=== PATIENT | female | born 1950 | race Asian ===

== ENCOUNTER → 2017-01-21 | Outpatient (CLI) | payer BC ==
[~2017-01-21] MED LIST: CA; MVI; PRILOSEC 20MG20 MG PO; SYNTHROID0.088 MG PO; SYNTHROID0.1 MG/TAB PO; ZITHROMAX500 M2 PO
== END ==
LOC: MC.RAD 10:59
DX: Z12.31 Encounter for screening mammogram for malignant neoplasm of breast (principal)

== ENCOUNTER → 2017-02-28 | Outpatient (CLI) | payer BC ==
[2017-02-28 14:45] LABS: ADD PATHOLOGY DIFF REVIEW NO
[2017-02-28 15:03] LABS: ALANINE AMINOTRANSFERASE 33 U/L (9-52); ALBUMIN 4.6 gm/dL (3.5-5.0); ALKALINE PHOSPHATASE 54 U/L (50-136); ANION GAP 14 mmol/L (7-16); BILIRUBIN,TOTAL 0.8 mg/dL (0.0-1.0); BLOOD UREA NITROGEN 10 mg/dL (7-17); CALCIUM 9.5 mg/dL (8.4-10.2); CARBON DIOXIDE 24 mmol/L (22-30); CHLORIDE 103 mmol/L (98-107); GLUCOSE 85 mg/dL (74-106); SODIUM 141 mmol/L (137-145); TOTAL PROTEIN 7.8 gm/dL (6.4-8.2)
[2017-02-28 15:16] LABS: HEMATOCRIT 39.1 % (37.0-47.0); HEMOGLOBIN 13.5 g/dl (12.5-16.0); MEAN CELL VOLUME 89 fl (80.0-100.0); MEAN CORPUSCULAR HEMOGLOBIN 31 pg (27.0-31.0); MEAN CORPUSCULAR HGB CONC 35 g/dl (33.0-37.0); MEAN PLATELET VOLUME 10.4 fl (7.4-10.4); PLATELET COUNT 251 K/mm3 (130-400); RED BLOOD COUNT 4.39 M/mm3 (4.10-5.30); REDCELL DISTRIBUTION WIDTH-CV 12.7 % (11.5-14.5); TROPONIN-I < 0.012 ng/mL (0.000-0.034)
[2017-02-28 15:21] LABS: BAND 3 % (0-10); BASOPHIL 1 % (0-2); NEUTROPHILS 51 % (42.0-75.2); PLATELET ESTIMATE NORMAL (NORMAL); TOTAL CELLS COUNTED 100
== END ==
LOC: COL.LAB 14:31
PROVIDERS: Internal Medicine
DX: K21.9 Gastro-esophageal reflux disease without esophagitis (principal); R07.9 Chest pain, unspecified

== ENCOUNTER 2020-04-19 07:03 | Day surgery (SDC) | payer MEDICARE, BC ==
[~2020-04-19] VITALS: Ht 158.8 cm; Wt 59.6 kg
[2020-04-19 07:43] VITALS: BP 139/89; PULSE 75; TEMP 98.2
[2020-04-19] MEDS ORDERED: CENTRUM SILVER1 CTB PO (07:52)
[2020-04-19] MEDS ORDERED: SYNTHROID0.088 MG/T PO (07:52)
[2020-04-19] MEDS ORDERED: VITAMIN D31000 IU PO (07:53)
[2020-04-19] MEDS ORDERED: B-121000 MCG PO (07:54)
[2020-04-19] MEDS ORDERED: OSTEO-BI-FLEX 21 TAB PO (07:54)
[2020-04-19] MEDS ORDERED: OSCAL 500 TAB500 MG PO (07:55)
--- NOTE | 2020-04-19 07:57 | NUR ---
TO RM AT 0710- CALL LIGHT IN REACH AT BEDSIDE.
[2020-04-19 09:10] VITALS: BP 138/86; PULSE 73; TEMP 97.7
--- NOTE | 2020-04-19 09:10 | NUR ---
TO RM 4 PER CART FROM ENDOSCOPY. LITTLE DROWSY. AMBULATED TO RECLINER WITH ASSIST AND TOLERATED WELL. AT BEDSIDE. SLEEPING IN RECLINER SOON SHE GOT TO IT.
[2020-04-19 09:25] VITALS: BP 122/80; PULSE 79
--- NOTE | 2020-04-19 09:25 | NUR ---
AWAKE TALKING TO AND ASKING WHEN SHE CAN GO HOME. RECEIVED WATER AND TAKING SIPS.
[2020-04-19 09:40] VITALS: BP 114/84; PULSE 71
--- NOTE | 2020-04-19 09:40 | NUR ---
DISCONTINUED IV AND INT- CATHETER INTACT. PATIENT GETTING DRESSED AND IS WAITING FOR DR DA SILVA.
--- NOTE | 2020-04-19 09:50 | NUR ---
DR DA SILVA INTO TALK WITH PATIENT AND HER .
--- NOTE | 2020-04-19 10:00 | NUR ---
PATIENT AND HER RECEIVED DISCHARGE INSTRUCTIONS AND VERBALIZED UNDERSTANDING.
--- NOTE | 2020-04-19 10:10 | NUR ---
DISCHARGED PER WC BY NURSING STAFF TO PRIVATE CAR IN CARE OF HER DEYVI.
== END 2020-04-19 10:15 | disposition home or self-care (01) ==
LOC: SDCO 07:03 → EDSEX 08:30 → SDCO 08:30
DX: Z12.11 Encounter for screening for malignant neoplasm of colon (principal); Z86.010 Personal history of colon polyps; E03.9 Hypothyroidism, unspecified; Z20.828 Contact with and (suspected) exposure to other viral communicable diseases; Z88.0 Allergy status to penicillin; Z79.899 Other long term (current) drug therapy; Z98.82 Breast implant status
CPT/HCPCS: G0105; J2250; J3010; J7030

== ENCOUNTER → 2020-06-02 | Outpatient (CLI) | payer MEDICARE, BC ==
[~2020-06-02] MED LIST changes: +B-121000 MCG PO; +CENTRUM SILVER1 CTB PO; +OSCAL 500 TAB500 MG PO; +OSTEO-BI-FLEX 21 TAB PO; +SYNTHROID0.088 MG/T PO; +VITAMIN D31000 IU PO
== END ==
LOC: MC.RAD 12:51
DX: Z12.31 Encounter for screening mammogram for malignant neoplasm of breast (principal); Z98.82 Breast implant status

== ENCOUNTER 2020-06-21 07:42 | Day surgery (SDC) | payer MEDICARE, BC ==
[~2020-06-21] VITALS: Ht 157.5 cm; Wt 58.6 kg
[2020-06-21 08:16] VITALS: BP 149/84; PULSE 67; TEMP 99.1
[2020-06-21 09:45] VITALS: BP 137/86; PULSE 64
--- NOTE | 2020-06-21 09:45 | NUR ---
Pt returned via cart to [facility]. SBA to recliner in [place]. Spouse present. VSS-see flowsheet. Pt given drink per request. Denies questions or complaints. Call light in reach. Warm blanket given, pt resting in recliner.
[2020-06-21 10:00] VITALS: BP 133/85; PULSE 67
[2020-06-21 10:15] VITALS: BP 135/79; PULSE 67
--- NOTE | 2020-06-21 10:35 | NUR ---
VSS-see flowsheet. Pt tolerated coffee. Dr Santana in to visit with pt and pts spouse post EGD. Discharge teaching completed, verbalized understanding. Pt refused wheelchair and staff ambulated with pt and spouse to private vehicle for spouse to drive pt home.
== END 2020-06-21 10:36 | disposition home or self-care (01) ==
LOC: SDCO 07:42
DX: K29.30 Chronic superficial gastritis without bleeding (principal); E03.9 Hypothyroidism, unspecified; Z86.010 Personal history of colon polyps; Z88.0 Allergy status to penicillin; K21.9 Gastro-esophageal reflux disease without esophagitis; Z85.028 Personal history of other malignant neoplasm of stomach; Z91.018 Allergy to other foods
CPT/HCPCS: J2704; J3010; J7030

== ENCOUNTER 2022-09-11 14:36 | Outpatient (CLI) | payer MEDICARE, BC ==
[~2022-09-11] VITALS: Ht 157.5 cm; Wt 62.1 kg
[~2022-09-11 14:36] MED LIST changes: +CIPRO 500MG TA500 MG PO; +FLAGYL500 MG PO; +SYNTHROID0.075 MG/T PO; -SYNTHROID0.088 MG/T PO
[2022-09-11 15:09] VITALS: BP 145/81; PULSE 68; TEMP 98.8
== END 2022-09-11 15:47 ==
LOC: EUO 14:36
DX: M85.80 Other specified disorders of bone density and structure, unspecified site (principal)
CPT/HCPCS: J3489

== ENCOUNTER 2023-09-12 14:25 | Outpatient (CLI) | payer MEDICARE ==
[2023-09-12 14:51] VITALS: BP 152/89; PULSE 75; TEMP 98.6
[2023-09-12] MEDS ORDERED: RECLAST5 MG/100 M IV (14:57)
[2023-09-12] MEDS ORDERED: PROBIOTIC BLEN1 EACH PO (14:58)
--- NOTE | 2023-09-12 15:33 | NUR ---
Pt tolerated reclast without issue. IV DC'd, site wrapped with coban. She exits dept with steady gait. Free of complaints at time of departure.
== END 2023-09-12 15:34 | disposition home or self-care (01) ==
LOC: EUO 14:25
DX: M85.80 Other specified disorders of bone density and structure, unspecified site (principal)
CPT/HCPCS: J3489

== ENCOUNTER 2024-02-24 09:06 | Day surgery (SDC) | payer MEDICARE ==
[~2024-02-24] VITALS: Ht 157.5 cm; Wt 59.6 kg
[~2024-02-24 09:06] MED LIST changes: +LR 1,000 ML IV SCH; +Ondansetron 4 MG/2 ML VIAL IV PRN; +PROBIOTIC BLEN1 EACH PO; +RECLAST5 MG/100 M IV
[2024-02-24] MEDS ORDERED: CRESTOR 10MG10 MG PO (09:30)
[2024-02-24] MEDS ORDERED: Lidocaine PF 2% (20 MG/ML) 5 ML VIAL ONE (10:29)
[2024-02-24 11:25] VITALS: BP 128/93; PULSE 67
[2024-02-24 11:35] VITALS: BP 134/71; PULSE 65
[2024-02-24 11:50] VITALS: BP 131/69; PULSE 63
[2024-02-24 15:22] VITALS: BP 144/87; PULSE 73; TEMP 98.1
--- NOTE | 2024-02-24 15:27 | NUR ---
1125 PATIENT RETURNS TO [facility] VIA CART. PT AWAKE AND ALERT. RESPIRATIONS UNLABORED. AMBULATED TO RECLINER CHAIR WITH 2:1 SBA. PT DENIES NAUSEA OR ABDOMINAL PAIN. HOOKED UP TO MONITOR AND VS OBTAINED. CALL LIGHT AT SIDE AND PRESENT. 1130 PATIENT TOLERATING MUFFIN, COFFEE AND ICE CREAM WITHOUT NAUSEA OR DIFFICULTY SWALLOWING (EGD ONLY). 1145 IN ROOM SPEAKING WITH PATIENT. 1200 D/C INSTRUCTIONS REVIEWED WITH PATIENT. PT VERBALIZED UNDERSTANDING AND A COPY OF INSTRUCTIONS PROVIDED IN D/C FOLDER. 1210 PATIENT DRESSES SELF. 1215 PATIENT DISCHARGED FROM UNIT VIA W/C TO A PERSONAL VEHICLE. PT LEFT HOSPITAL IN STABLE CONDITION.
== END 2024-02-24 12:15 | disposition home or self-care (01) ==
LOC: SDCO 09:06
DX: Z12.11 Encounter for screening for malignant neoplasm of colon (principal); K57.30 Diverticulosis of large intestine without perforation or abscess without bleeding; K64.0 First degree hemorrhoids; K64.4 Residual hemorrhoidal skin tags; Z86.010 Personal history of colon polyps
CPT/HCPCS: J2704